=== PATIENT | female | born 1985 | race Caucasian/White ===

== ENCOUNTER 2023-03-30 13:00 | Outpatient (RCR) | payer BC, SELFPAY ==
--- NOTE | 2023-03-25 20:18 | HP.PTEVAL ---
Patient's Visit Information Visit Information Visit Information: STEVE LEON is a 38 year old F referred to Physical Therapy by Dr. Rodri Marcum MD with a diagnosis of R HIP PAIN AND TROCHANTERIC BURSITIS. Date of Evaluation: 03/23/23 Physical Therapist: Belle Jaime, PT, Cert MDT Visit Plan Frequency: 2-3x /Week Duration: 4-6 Weeks Plan: AQUATIC THERAPY 2-3 TIMES A WK X 4-6 WKS FOR R HIP PAIN RELIEF TAKING LBP INTO CONSIDERATION. FOCUS ON CORE AND R HIP STRENGTH AND STABILITY WITH NEUTRAL SPINE AND PROGRESSING RIGHT HIP ROM TOLERATED TO RESTORE FULL PAINFREE ROM. HEP INSTRUCTION. 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 CURRENTLY NOT OFF WORK. Present symptoms: RIGHT HIP AND GROIN PAIN. INTERMITTENT LOW BACK PAIN. Present since: CHRONIC FOR YEARS. NOT CONSTANTLY BUT IT COMES AND GOES. Pain Scale: WORST 8/10, LEAST 0/10 Currently: 2/10 Is it getting better, worse or staying the same: STAYING THE SAME Commenced as a result of: NO APPARENT REASON Symptoms at onset: R HIP PAIN Worse: WALKING DOWN A DECLINE, SOMETIMES LYING ON IT MAKES FEEL WORSE AND SOMETIMES IT MAKES IT FEEL BETTER. STANDING, WALKING, WEIGHTBEARING ON IT. Better: SITTING, GETTING OFF OF IT, NOT BE MOVING. Disturbed sleep: NO Previous history/Previous treatment: CHIROPRACTIC FOR BACK AND HIP. NO BACK OR HIP SURGERY. NO BACK OR HIP INJECTIONS. NO BACK OR HIP PT. Coughing/sneezing/straining: NEGATIVE Gait: SOMETIMES TIME AND DISTANCE LIMITED IF R HIP IS FLARED UP. SOMETIMES CAUSES LIMP. FELL 2 DAYS AGO BECAUSE OF IT. GETTING READY FOR WORK. GETTING PANTS ON STARTED TO LOSE BALANCE AND R LEG WOULDN'T CATCH/SUPPORT HER. Bowel or Bladder Dysfunction: NO Accidents: NO Unexplained weight loss: NO Imaging: R HIP X-RAY AT [facility] SHOWING EVERYTHING IN THE JOINT LOOKED GOOD. PMH/Recent major surgery: LBP, MIGRAINES Objective Objective: Sitting/Standing Posture: FAIR. NORMAL LORDOSIS. NO RELEVANT LATERAL SHIFT. ILIAC CRESTS SYMMETRICAL. Active Correction of posture: NE Other Observations: INDEP TRANSFERS SIT TO STAND WITHOUT UE ASSIST. Sensory deficit: LAYO LE LIGHT TOUCH GROSSLY INTACT AND SYMMETRICAL ROM deficit: LAYO LE ROM WFL BUT AROM TESTING INFO IR PROVOKES C/O R LATERAL HIP PAIN. Motor deficit: L HIP 5/5, KNEE 5/5, ANKLE 5/5. R HIP FLEX 5/5, ABD 4/5, IR 4/5, ER 3+/5, EXT 4/5, ADD 5/5, KNEE 5/5, ANKLE 5/5. PATIENT C/O R LATERAL HIP PAIN WITH R HIP ER TESTING. Reflexes: 2/3 LYAO LE'S Dural Signs: NEGATIVE LAYO LE'S. Lumbar mvmt loss: flex - NIL ext - MIN R SG - MIN L SG - MIN PATIENT DENIES INCREASED PAIN WITH LUMBAR ROM TESTING ALL PLANES. Core strength: FAIR Palpation: TENDERNESS WITH PALPATION OF R GREATER TROCH AND IT BAND REGIONS . OTHER: RIGHT HIP PAIN REMAINS WORSE AFTER R HIP ER STRENGTH TESTING AND R GREATER TROCH AND HIP ER STRENGTH TESTING. POSITIVE R VETO TEST. Balance/Special Test Scores Lower Extremity Functional Score: 60 Goals Goal 1:: DECREASE C/O R HIP PAIN BY AT LEAST 50% TO EASE ADL'S. Goal Time Frame: 4-6 Weeks Goal 2:: RESTORE FULL STRENGTH OF R HIP FOR UNLIMITED ACTIVITY Goal Time Frame: 4-6 Weeks Goal 3:: INDEP HEP Goal Time Frame: 4-6 Weeks Rehabilitation Potential Physical Therapy Diagnosis: R LATERAL HIP PAIN, TENDERNESS, STIFFNESS AND WEAKNESS. Rehabilitation Potential: Good Anticipated Interventions Patient/Client Instruction: Educate patient on: Condition, Plan of Care and Risk Factors For the Purpose of:: To improve self management Therapeutic Exercise to Include: Strength training, Body mechanics, Postural training, Flexibilty training, Neuromotor development, In an aquatic setting and Dynamic Lumbar Stabilization For the Purpose of:: To decrease pain, To increase ROM, To improve muscle performance and motor function, To increase tolerance to activity/condition/position and To improve ability of physical actions for home/community/work/leisure Text: Thank you for the opportunity to evaluate your patient. For Medicare and Medicare HMO plans, please review the plan of care and approve it. It will need to be FAXED BACK to us at [phone] for Medicare purposes. For Medicare only, by signing this I certify the plan of care. Please let me know if there are questions or concerns regarding this plan of care. Physician Signature: Date:
--- NOTE | 2023-07-19 08:19 | HP.PT.NRP ---
Patient Information Patient Information: STEVE LEON was seen in my office for initial evaluation on 03/23/23. The following Plan of Care was established for this patient: POC Established Initial Frequency: 2-3x /Week Initial Duration: 4-6 Weeks Anticipated Interventions Patient/Client Instruction: Educate patient on: Condition, Plan of Care and Risk Factors For the Purpose of:: To improve self management Therapeutic Exercise to Include: Strength training, Body mechanics, Postural training, Flexibilty training, Neuromotor development, In an aquatic setting and Dynamic Lumbar Stabilization For the Purpose of:: To decrease pain, To increase ROM, To improve muscle performance and motor function, To increase tolerance to activity/condition/position and To improve ability of physical actions for home/community/work/leisure Last Seen Last Seen: This patient was last seen in our office 03/30/23. Pertinent comments regarding their Physical therapy will appear below: This patient has not returned to Physical Therapy and is appropriate to return to MD for further follow-up as needed. At this point I will be discontinuing this patient from physical therapy. I would be happy to see this patient again in the future if found appropriate by the physician. Thank you! Belle Jaime, PT, Cert MDT Balance/Gait/Functional tests Balance/Special Test Scores Lower Extremity Functional Score: 60
== END 2023-03-30 19:00 | disposition home or self-care (01) ==
LOC: PT 13:00
PROVIDERS: Referring Provider Orthopaedic Surgery; Visit Provider Orthopaedic Surgery
DX: M70.61 Trochanteric bursitis, right hip (principal); M25.551 Pain in right hip
CPT/HCPCS: 97113; 97162